=== PATIENT | male | born 1975 | race Caucasian/White ===

== ENCOUNTER 2017-01-05 22:19 | Inpatient (IN) | payer OTHER ==
[~2017-01-05] VITALS: Ht 182.9 cm; Wt 98.4 kg
[~2017-01-05 22:19] MED LIST: NOHOMEMEDS
[2017-01-05 23:00] LABS: HEMATOCRIT 19.9 % (38.0-50.0); MCH 33.6 PG (29.0-34.0); MCHC 35.7 G/DL (30.0-36.0); MCV 94.3 FL (86-99); MEAN PLAT.VOLUME 9.7 uM^3 (9.0-12.4); PLATELET COUNT 250 K/uL (156-360); RBC DIS.WIDTH-CV 12.2 % (11.8-14.6); RBC DIS.WIDTH-SD 41.5 % (39-53); RED BLOOD COUNT 2.11 M/uL (4.00-5.50); WHITE BLOOD COUNT 9.9 K/uL (4.1-10.2)
[2017-01-05 23:05] LABS: INTER. NORMALIZED RATIO 1.1; PROTHROMBIN TIME 12.4 SEC (10.2-12.9)
[2017-01-05 23:08] LABS: PTT 25.8 SEC (25-37)
[2017-01-05 23:21] LABS: CHLORIDE 112 mEq/L (99-109); POTASSIUM 3.5 mEq/L (3.7-5.4); SODIUM 141 mEq/L (136-147)
[2017-01-05 23:23] LABS: GLUCOSE 98 mg/dL (70-99)
[2017-01-05 23:24] LABS: ANION GAP 8 MEQ/L (2-14)
[2017-01-05] MEDS ORDERED: ADVIL,NUPRIN,M200 MG PO (23:24)
[2017-01-05] MEDS ORDERED: EXCEDRIN EXTRA1 EACH PO (23:24)
[2017-01-05] MEDS ORDERED: ALEVE220 MG PO (23:25)
[2017-01-05 23:27] LABS: GFR ESTIMATE (CALCULATED) > 59 mL/min/
[2017-01-05 23:28] LABS: UREA NITROGEN (BUN) 30 mg/dL (9-23)
[2017-01-06] VITALS (12 sets, daily range): BP systolic 102–143; BP diastolic 62–87
[2017-01-06 03:21] LABS: TOTAL BILIRUBIN 0.4 mg/dL (0.0-1.0)
[2017-01-06 03:22] LABS: ALKALINE PHOSPHATASE 59 IU/L (3-129)
[2017-01-06 03:25] LABS: DIRECT BILIRUBIN 0.2 mg/dL (0.0-0.3)
[2017-01-06 06:32] LABS: MCH 31.7 PG (29.0-34.0); MCHC 33.3 G/DL (30.0-36.0); MCV 95.2 FL (86-99); MEAN PLAT.VOLUME 10.2 uM^3 (9.0-12.4); PLATELET COUNT 218 K/uL (156-360); RBC DIS.WIDTH-SD 44.5 % (39-53); RED BLOOD COUNT 2.52 M/uL (4.00-5.50); WHITE BLOOD COUNT 7.4 K/uL (4.1-10.2)
[2017-01-06 06:50] LABS: ALKALINE PHOSPHATASE 48 IU/L (3-129); ANION GAP 7 MEQ/L (2-14); CHLORIDE 110 MEQ/L (99-109); GFR ESTIMATE (CALCULATED) > 59 mL/min/; GLUCOSE 89 mg/dL (70-99); POTASSIUM 3.5 MEQ/L (3.7-5.4); SAMPLE HEMOLYSIS CHECK 0; SAMPLE ICTERIC CHECK 0; SAMPLE LIPEMIA CHECK 0; SODIUM 139 MEQ/L (136-147); TOTAL BILIRUBIN 0.7 MG/DL (0.0-1.0); UREA NITROGEN (BUN) 21 mg/dL (9-23)
[2017-01-06 16:59] LABS: HEMATOCRIT 25.1 % (38.0-50.0)
[2017-01-06 21:26] LABS: ADD MIUA? NO; BILIRUBIN NEGATIVE; BLOOD NEGATIVE; COLOR STRAW ((YELLOW)); GLUCOSE (STRIP) NEGATIVE; KETONES NEGATIVE; LEUKOCYTES NEGATIVE; NITRITE NEGATIVE; PROTEIN (STRIP) NEGATIVE; SPECIFIC GRAVITY 1.008 (1.000-1.030); UCUL ADDED? NO; UROBILINOGEN 0.2 MG/DL (0.2-1.0)
[2017-01-07 03:53] VITALS: BP 101/61
[2017-01-07 06:22] LABS: BASOPHIL COUNT 0.1 K/uL (0-0.1); EOSINOPHIL COUNT 0.2 K/uL (0-0.3); HEMATOCRIT 22.8 % (38.0-50.0); IMMATURE GRANULOCYTE (%) 0.3 % (0.0-0.7); INSTRUMENT ABS NEUTROPHIL CT 3.5 K/uL; LYMPHOCYTE COUNT 1.5 K/uL (1.0-2.8); MCH 32.2 PG (29.0-34.0); MCHC 34.6 G/DL (30.0-36.0); MCV 93.1 FL (86-99); MEAN PLAT.VOLUME 9.7 uM^3 (9.0-12.4); MONOCYTE (%) 8.7 % (3-12); MONOCYTE COUNT 0.5 K/uL (0-0.8); NEUTROPHIL (%) 61.5 % (45-76); NEUTROPHIL COUNT 3.5 K/uL (1.8-6.4); PLATELET COUNT 210 K/uL (156-360); RBC DIS.WIDTH-CV 13.2 % (11.8-14.6); RBC DIS.WIDTH-SD 43.5 % (39-53); RED BLOOD COUNT 2.45 M/uL (4.00-5.50); WHITE BLOOD COUNT 5.8 K/uL (4.1-10.2)
[2017-01-07 06:47] LABS: ANION GAP 9 MEQ/L (2-14); CHLORIDE 109 MEQ/L (99-109); GFR ESTIMATE (CALCULATED) > 59 mL/min/; GLUCOSE 90 mg/dL (70-99); POTASSIUM 3.7 MEQ/L (3.7-5.4); SAMPLE HEMOLYSIS CHECK 0; SAMPLE ICTERIC CHECK 0; SAMPLE LIPEMIA CHECK 0; SODIUM 142 MEQ/L (136-147); UREA NITROGEN (BUN) 11 mg/dL (9-23)
[2017-01-07 07:35] LABS: RETIC HGB EQUIVALENT 37.7 (28-36); RETICULOCYTE COUNT 3.2 % (0.5-1.8)
[2017-01-07 07:40] VITALS: BP 115/66
[2017-01-07 07:46] LABS: IRON 35 MCG/DL (35-150)
[2017-01-07 08:33] LABS: FERRITIN 76 NG/ML (22-322)
[2017-01-07] MEDS ORDERED: LIDODERM 5% P1 PATCH TD (09:30)
[2017-01-07] MEDS ORDERED: PROTONIX40 MG PO (09:30)
[2017-01-07] MEDS ORDERED: ROXICODONE5 MG PO (09:30)
[2017-01-07 15:49] VITALS: BP 115/74
== END 2017-01-07 18:25 | disposition home or self-care (01) | DRG 378 ==
LOC: EME 22:19 → 5EAST 01-06 02:27 → EDOF 01-06 02:27 → ENRESERV 01-06 02:29 → 5EAST 01-06 04:44 → ENPENDDIS 01-07 → 5EAST 01-07 18:25
PROVIDERS: Emergency Medicine; Hospitalist
PROC: 30233N1 Transfusion of Nonautologous Red Blood Cells into Peripheral Vein, Percutaneous Approach (ICD-10-PCS; principal; 2017-01-05)
PROC: 0DJ08ZZ Inspection of Upper Intestinal Tract, Via Natural or Artificial Opening Endoscopic (ICD-10-PCS; 2017-01-06)
DX: K27.4 Chronic or unspecified peptic ulcer, site unspecified, with hemorrhage (principal); K92.1 Melena; T39.395A Adverse effect of other nonsteroidal anti-inflammatory drugs [NSAID], initial encounter; D62 Acute posthemorrhagic anemia; F17.200 Nicotine dependence, unspecified, uncomplicated; I10 Essential (primary) hypertension; R52 Pain, unspecified; M54.5 Low back pain; R55 Syncope and collapse; K58.9 Irritable bowel syndrome, unspecified; K26.9 Duodenal ulcer, unspecified as acute or chronic, without hemorrhage or perforation; K25.9 Gastric ulcer, unspecified as acute or chronic, without hemorrhage or perforation; G89.29 Other chronic pain; Z79.1 Long term (current) use of non-steroidal anti-inflammatories (NSAID); Z90.49 Acquired absence of other specified parts of digestive tract
CPT/HCPCS: 70140; 72148; 74176; 80048; 80053; 80076; 81003; 82607; 82728; 82746; 83540; 84466; 85014; 85018; 85025; 85027; 85045; 85610; 85730; 86850; 86900; 86901; 86920; 93971; 99281; 99285; C9113; J2270; J3010; J7030; J7050; P9016